=== PATIENT | male | born 1995 | race African-American/Black ===

== ENCOUNTER 2021-12-03 21:06 | Emergency (ER) | payer SELFPAY ==
[~2021-12-03] VITALS: Ht 177.8 cm; Wt 72.7 kg
[2021-12-03 21:07] VITALS: BP 132/72
[2021-12-03] MEDS ORDERED: ERYT3.5O8 OU (21:14)
[2021-12-03] MEDS ORDERED: FLUORESCEIN SODIUM 1 MG STRIP OU ONE (22:15)
[2021-12-03] MEDS ORDERED: PROPARACAINE HCL 0.5% 15 ML OPHTHALMIC SOLUTION OU ONE (22:15)
[2021-12-03] MEDS ORDERED: OFLO35OS OU (22:35)
== END 2021-12-03 23:04 | disposition home or self-care (01) ==
LOC: EMS 21:07
DX: H10.9 Unspecified conjunctivitis (principal); F12.90 Cannabis use, unspecified, uncomplicated
CPT/HCPCS: 99283